=== PATIENT | female | born 1995 | race African-American/Black ===

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

== ENCOUNTER 2017-01-20 23:32 | Emergency (ER) | payer OTHER | END 2017-01-21 01:00 | disposition left against medical advice (07) | LOC: CED 23:32 | DX: Z53.21 Procedure and treatment not carried out due to patient leaving prior to being seen by health care provider (principal) ==

== ENCOUNTER 2017-01-22 04:48 | Emergency (ER) | payer OTHER ==
--- NOTE | ~2017-01-22 | CR63 ---
[facility] A Service of [facility] & [facility] RADIOLOGY TEXT RESULTS PATIENT: LIMA UMAÑA LOCATION: [facility] : [birth year] UNIT #: [id number] AGE: [address]: Ne Solorio MD SEX: F ORDER DR: [id number] [facility]. [place], [place] [address] [id number] MR#: [id number] Acc #: [id number] NAME: LIMA UMAÑA : 1995 SEX: F STUDY DATE/TIME: 01/22/2017 6:39 UNIT: [facility] ROOM: STUDY DESCRIPTION: CR Chest 2 View Attending Physician: Ne Solorio M.D. Ordering Physician: Ne Solorio M.D. Primary Care Physician: No Primary Care Physician MEDICAL IMAGING REPORT This report is preliminary unless electronic signature is present EXAM PA and lateral chest. INDICATIONS Cough and right chest pain today, actually for 4 days rather. COMPARISON No comparisons. FINDINGS The lungs are well expanded and clear. The heart size is normal. The visualized osseous structures are unremarkable. IMPRESSION Negative chest. Dictated by... Alistair Spicer M.D. THIS IS AN ELECTRONICALLY VERIFIED REPORT Alistair Spicer M.D. at 01/22/2017 3:57 PM RIC/jesus TD: 01/22/2017 15:50 JOB #: [id number] MEDICAL IMAGING REPORT Page 1 of 1 COPY
== END 2017-01-22 07:10 | disposition home or self-care (01) ==
LOC: CED 04:48
DX: J20.9 Acute bronchitis, unspecified (principal); F17.200 Nicotine dependence, unspecified, uncomplicated
CPT/HCPCS: 71020; 84703; 99283

== ENCOUNTER 2017-05-15 13:55 | Emergency (ER) | payer OTHER ==
[~2017-05-15] VITALS: Ht 162.6 cm; Wt 63.5 kg
[2017-05-15 16:23] LABS: URINE SOURCE CLEAN CATCH
[2017-05-15 16:32] LABS: URINE APPEARANCE CLOUDY; URINE BILIRUBIN NEG (NEG); URINE BLOOD NEG (NEG); URINE COLOR YELLOW; URINE GLUCOSE NEG (NEG); URINE KETONE TRACE (NEG); URINE LEUKOCYTE ESTERASE 2+ (NEG); URINE NITRATE NEG (NEG); URINE PROTEIN 1+ (NEG); URINE SPECIFIC GRAVITY 1.028 (1.003-1.035)
[2017-05-15 16:35] LABS: CULTURE INDICATED? YES; URINE BACTERIA AUWI NEG (NEGATIVE); URINE SQUAMOUS EPITHELIAL CELL MOD /[HPF]; UWBCS1 AUWI 25-50 (0-5)
[2017-05-18 21:10] LABS: CHLAMYDIA TRACH Detected (Not Detected); N GONOR Detected (Not Detected)
== END 2017-05-15 17:56 | disposition home or self-care (01) ==
LOC: CED 13:55
PROVIDERS: Physician Assistant
DX: J06.9 Acute upper respiratory infection, unspecified (principal); A59.9 Trichomoniasis, unspecified
CPT/HCPCS: 81003; 84703; 87086; 87491; 87591; 87651; 87808; 87905; 96372; 99283; J0696